=== PATIENT | male | born 1965 | race African-American/Black ===

== ENCOUNTER 2024-03-20 13:27 | Inpatient (IN) | payer OTHER ==
[2024-03-20 14:11] VITALS: BMI 16.7
[2024-03-20] MEDS ORDERED: DICYCLOMINE HCL 10 MG CAPSULE PO PRN (16:01)
[2024-03-20] MEDS ORDERED: IBUPROFEN 400 MG TABLET (FP) PO PRN (16:01)
[2024-03-20] MEDS ORDERED: IBUPROFEN 600 MG TABLET (FP) PO PRN (16:01)
[2024-03-20] MEDS ORDERED: MAG HYDROX/AL HYDROX/SIMETH 30 ML UNIT-DOSE CUP PO PRN (16:01)
[2024-03-20] MEDS ORDERED: ONDANSETRON *ODT* 4 MG TABLET SL PRN (16:01)
[2024-03-20] MEDS ORDERED: MAGNESIUM HYDROX 2400MG/30ML ORAL SUSPENSION 30 ML CUP PO PRN (16:01)
[2024-03-20] MEDS ORDERED: guaiFENesin 600 MG TABLET.ER (FP) PO PRN (16:01)
[2024-03-20] MEDS ORDERED: BENZOCAINE/MENTHOL (CHLORASEPTIC ) LOZENGE MM PRN (16:01)
[2024-03-20] MEDS ORDERED: ACETAMINOPHEN 325 MG TABLET (FP) PO PRN (16:01)
[2024-03-20] MEDS ORDERED: hydrOXYzine PAMOATE 25 MG CAPSULE (FP) PO PRN (16:01)
[2024-03-20] MEDS ORDERED: BENZONATATE 200 MG CAPSULE PO PRN (16:01)
[2024-03-20] MEDS ORDERED: METHOCARBAMOL 500 MG TABLET PO PRN (16:01)
[2024-03-20] MEDS ORDERED: POLYETHYLENE GLYCOL (HEALTHYLAX) 3350 17 GM PACKET PO PRN (16:01)
[2024-03-20] MEDS: THIAMINE 100 MG TABLET PO SCH (22:12)
[2024-03-20] MEDS: MELATONIN 5 MG TABLETS PO SCH (22:12)
[2024-03-21] MEDS: LOPERAMIDE HCL 2 MG CAPSULE PO PRN (00:04)
[2024-03-21] MEDS: PRENATAL VITAMINS W/ FOLIC ACID TABLET (FP) PO SCH (10:17)
[2024-03-21] MEDS: BISMUTH SUBSALICYLATE 524 MG/30 ML PO PRN (10:17)
[2024-03-21 13:21] LABS: CHLORIDE 98 mmol/L (98-107); POTASSIUM 3.5 mmol/L (3.5-5.1); SODIUM 132 mmol/L (136-145)
[2024-03-21 13:25] LABS: HEMATOCRIT 36.5 % (35.4-49); HEMOGLOBIN 12.5 GM/dL (11.7-16.9); MCH 31.8 pg (25.7-33.7); MCHC 34.3 g/dl (32.0-35.9); MEAN PLT VOLUME 9.8 fl (7.5-11.1); PLATELET COUNT 155 10^3/uL (134-434); RBC 3.93 M/mm3 (4.00-5.60); RDW 16.4 % (11.9-15.9); WHITE BLOOD COUNT 4.2 K/mm3 (4.0-10.0)
[2024-03-21 13:28] LABS: ALBUMIN 4.2 g/dl (3.4-5.0); CALCIUM 9.6 mg/dL (8.5-10.1)
[2024-03-21 13:29] LABS: ANION GAP 8 mmol/L (4-13); BLOOD UREA NITROGEN 21.8 mg/dL (7-18); CO2 27 mmol/L (21-32); GLUCOSE,RANDOM 166 mg/dL (74-106)
[2024-03-21 13:32] LABS: SGOT/AST 233 U/L (15-37); SGPT/ALT 151 U/L (13-61)
[2024-03-21 13:33] LABS: BILIRUBIN,TOTAL 1.4 mg/dL (0.2-1); TOT PROT 8.4 g/dl (6.4-8.2)
[2024-03-21 13:35] LABS: ALK PHOS 92 U/L (45-117)
[2024-03-23 09:33] VITALS: BP 136/87; PULSE 100; RESP 17; TEMP 99.5
== END 2024-03-23 12:28 | disposition home or self-care (01) | DRG 897 ==
LOC: YASAS 13:27 → Y6N 18:02
PROVIDERS: ADMIT Allergy & Immunology; ATTEND Surgery
PROC: HZ2ZZZZ Detoxification Services for Substance Abuse Treatment (ICD-10-PCS; principal; 2024-03-20)
DX: F10.20 Alcohol dependence, uncomplicated (principal); Z68.1 Body mass index [BMI] 19.9 or less, adult; I10 Essential (primary) hypertension; R62.7 Adult failure to thrive; R26.89 Other abnormalities of gait and mobility; Z99.89 Dependence on other enabling machines and devices
CPT/HCPCS: 36415; 80053; 80305; 80307; 82962; 85027; 86780; 93005; 93010